=== PATIENT | male | born 1995 | race Hispanic/Latino ===

== ENCOUNTER 2021-01-09 23:59 | Emergency (ER) | payer OTHER ==
[2021-01-10 01:31] VITALS: BP 118/85
--- NOTE | 2021-01-10 01:31 | Emergency Department Report ---
ED Allergic Reaction HPI - General Stated complaint: ALLERGIC REACTION - History of Present Illness Initial Comments: Patient is a 25-year-old [place] male with no past medical history presents to the ED with complaint of acute onset persistent diffuse itchy erythematous maculopapular rashes for the last 3 hours after eating some seafood. Patient states that he has previously consumed the same food with no difficulty but does not understand what may have caused the itching and hives. Patient states that he was told to take Benadryl prior to arrival in the ED but declined to take any medication because he was scared. Patient denies swollen lips, swollen tongue, shortness of breath, nausea and vomiting, chest pain, wheezing, cough, nominal pain, diarrhea, facial swelling, dysphagia or dysphonia, fever and chills. MD Complaint: allergic reaction, hives, other (Itching) -: Sudden, hour(s) (3) Exposure: food Symptoms: rash, itching. denies: facial swelling, lip swelling, difficulty swallowing, difficulty breathing, orolingual swelling, hoarseness, syncopy, dizziness, nausea, vomiting, other, abdominal pain Severity: severe Treatment Prior to Arrival: none Previous Allergy History: none - Related Data Previous Rx's Medication Instructions Recorded Last Taken Type Famotidine [Pepcid] 20 mg PO BID #30 tablet 01/10/21 Unknown Rx Prednisone [predniSONE 10 mg 10 mg PO .TAPER #21 tab.ds.pk 01/10/21 Unknown Rx (6-Day Pack, 21 Tabs)] diphenhydrAMINE [Benadryl CAP] 25 mg PO Q6HR PRN #30 cap 01/10/21 Unknown Rx Allergies Allergy/AdvReac Type Severity Reaction Status Date / Time No Known Allergies Allergy Unverified 01/10/21 01:51 ED Review of Systems ROS: Stated complaint: ALLERGIC REACTION Other details as noted in HPI Constitutional: denies: chills, fever Eyes: denies: eye pain, eye discharge, vision change ENT: denies: ear pain, throat pain Respiratory: denies: cough, shortness of breath, wheezing Cardiovascular: denies: chest pain, palpitations Endocrine: no symptoms reported Gastrointestinal: denies: abdominal pain, nausea, diarrhea Genitourinary: denies: urgency, dysuria Musculoskeletal: denies: back pain, joint swelling, arthralgia Skin: rash (Diffuse erythematous maculopapular urticaria itchy rashes), change in color, pruritus. denies: lesions Neurological: denies: headache, weakness, paresthesias Psychiatric: denies: anxiety, depression Hematological/Lymphatic: denies: easy bleeding, easy bruising ED Past Medical Hx - Medications Home Medications: Home Medications Medication Instructions Recorded Confirmed Last Taken Type Famotidine [Pepcid] 20 mg PO BID #30 tablet 01/10/21 Unknown Rx Prednisone [predniSONE 10 mg 10 mg PO .TAPER #21 tab.ds.pk 01/10/21 Unknown Rx (6-Day Pack, 21 Tabs)] diphenhydrAMINE [Benadryl CAP] 25 mg PO Q6HR PRN #30 cap 01/10/21 Unknown Rx ED Physical Exam - General General appearance: alert, in no apparent distress - Head Head exam: Present: atraumatic, normocephalic, normal inspection - Eye Eye exam: Present: normal appearance, PERRL, EOMI Pupils: Present: normal accommodation - ENT ENT exam: Present: normal exam, normal orophraynx, mucous membranes moist, TM's normal bilaterally, normal external ear exam - Neck Neck exam: Present: normal inspection, full ROM. Absent: tenderness - Respiratory Respiratory exam: Present: normal lung sounds bilaterally. Absent: respiratory distress, wheezes, rales, rhonchi, chest wall tenderness, accessory muscle use, decreased breath sounds - Cardiovascular Cardiovascular Exam: Present: regular rate, normal rhythm, normal heart sounds. Absent: systolic murmur, diastolic murmur, rubs, gallop - GI/Abdominal GI/Abdominal exam: Present: soft, normal bowel sounds. Absent: tenderness, guarding, rebound, hyperactive bowel sounds, hypoactive bowel sounds - Extremities Exam Extremities exam: Present: normal inspection, full ROM, normal capillary refill - Back Exam Back exam: Present: normal inspection, full ROM. Absent: tenderness, CVA tenderness (R), CVA tenderness (L), muscle spasm, paraspinal tenderness, vertebral tenderness - Neurological Exam Neurological exam: Present: alert, oriented X3, CN II-XII intact, normal gait, reflexes normal - Psychiatric Psychiatric exam: Present: normal affect, normal mood - Skin Skin exam: Present: warm, dry, intact, normal color, rash (Diffuse erythematous maculopapular urticarial rashes), erythema, urticaria ED Course Vital Signs 01/10/21 01/10/21 01/10/21 01:26 01:52 01:54 Temperature 98.1 F Pulse Rate 106 H 99 H 99 H Respiratory 18 16 Rate Blood Pressure 118/85 O2 Sat by Pulse 97 98 Oximetry ED Medical Decision Making - Medical Decision Making This is a 25-year-old [place] male with no past medical history presents to the ED with complaint of acute onset persistent diffuse itchy erythematous maculopapular rashes for the last 3 hours after eating some seafood. Patient states that he has previously consumed the same food with no difficulty but does not understand what may have caused the itching and hives. Patient states that he was told to take Benadryl prior to arrival in the ED but declined to take any medication because he was scared. In the ED, patient is alert and oriented x3 and is not in any distress with normal vital signs. Patient was treated for suspected acute allergic reaction with Benadryl, Pepcid and steroids. On reevaluation, patient felt better and will discharge home on medications. Patient was advised to return to the ED immediately if symptoms get worse, or otherwise follow-up with his primary care physician in 3 to 5 days for reevaluation. - Differential Diagnosis Allergic reaction; acute urticaria; itching; insect bite; food allergy Critical care attestation.: If time is entered above; I have spent that time in minutes in the direct care of this critically ill patient, excluding procedure time. ED Disposition Clinical Impression: Itching with irritation, Acute urticaria Acute allergic reaction Qualifiers: Encounter type: initial encounter Qualified Code(s): T78.40XA - Allergy, unspecified, initial encounter Disposition: DC-01 TO HOME OR SELFCARE Is pt being admited?: No Does the pt Need Aspirin: No Condition: Stable Instructions: Allergies, Adult, [id number], Hives, [id number], Rash, Adult, [id number] Additional Instructions: Take medication with food, drink plenty of fluids and follow-up with your primary care physician in 5 to 7 days for reevaluation. Return to the ED immediately if symptoms get worse. Prescriptions: diphenhydrAMINE [Benadryl CAP] 25 mg PO Q6HR PRN #30 cap PRN Reason: Itching Famotidine [Pepcid] 20 mg PO BID #30 tablet Prednisone [predniSONE 10 mg (6-Day Pack, 21 Tabs)] 10 mg PO .TAPER #21 tab.ds.pk Referrals: [facility] [Provider Group] - 3-5 Days Time of Disposition: 01:34 Print Language: SERBIAN
[2021-01-10] MEDS ORDERED: predniSONE 20 MG TAB PO ONE (01:34)
[2021-01-10] MEDS ORDERED: diphenhydrAMINE 25 MG CAP PO ONE (01:34)
[2021-01-10] MEDS ORDERED: FAMOTIDINE 20 MG TAB PO ONE (01:34)
== END 2021-01-10 02:10 | disposition home or self-care (01) ==
LOC: ED 23:59
DX: T78.1XXA Other adverse food reactions, not elsewhere classified, initial encounter (principal); L29.9 Pruritus, unspecified; L50.8 Other urticaria; Z79.899 Other long term (current) drug therapy; X58.XXXA Exposure to other specified factors, initial encounter
CPT/HCPCS: 99282; J7512